=== PATIENT | female | born 1985 | race Caucasian/White ===

== ENCOUNTER 2017-02-03 09:42 | Inpatient (IN) | payer BC, MEDICAID ==
[2017-02-03 10:37] LABS: Hematocrit 37 % (35-47); Hemoglobin 12.5 g/dl (12.0-16.0); Mean Corpuscular HGB Conc 34 g/dl (31-36); Mean Corpuscular Hemoglobin 27 pg (27-31); Mean Corpuscular Volume 81 fL (80-97); Mean Platelet Volume 8 um3 (7.4-10.4); Red Cell Distribution Width 15 % (10.5-15); White Blood Count 16.4 10^3/ul (3.5-10.8)
[2017-02-03] MEDS ORDERED: Sodium Citrate/Citric Acid* 15 ML UDC ONE (13:12)
[2017-02-03] MEDS ORDERED: ceFOXitin 2 GM IVPREMIX* 2 GM/50 ML BAG ONE (13:12)
[2017-02-03] MEDS ORDERED: Morphine PF AMP (0.5MG/ML)* 5 MG/10 ML AMP ONE (13:36)
[2017-02-03] MEDS ORDERED: OXYTOCIN* 10 UNITS/ML 1 ML VIAL ONE (14:06)
[2017-02-03] MEDS ORDERED: Naloxone* 0.4 MG/ML 1 ML VIAL IV PRN (14:12)
[2017-02-03] MEDS ORDERED: Ondansetron INJ* 2 MG/ML VIAL IV PRN (14:12)
[2017-02-03] MEDS ORDERED: Nalbuphine* 20 MG/ML 1 ML VIAL IV PRN (14:12)
[2017-02-03] MEDS ORDERED: Dibucaine 1% 28.35 GM TUBE PR PRN (14:40)
[2017-02-03] MEDS ORDERED: Glycerin ADULT SUPP PR PRN (14:40)
[2017-02-03] MEDS ORDERED: Witch Hazel PAD* JAR TOPICAL PRN (14:40)
[2017-02-03] MEDS ORDERED: Acetaminophen TAB* 325 MG PO PRN (14:40)
[2017-02-03] MEDS ORDERED: RHO D Immune Globulin (HUMAN)* 300 MCG = 1,500 I.U. INJ IM ONE (14:40)
[2017-02-03] MEDS ORDERED: Zolpidem TAB* 5 MG PO PRN (14:40)
[2017-02-03] MEDS ORDERED: Oxytocin in LR* 20 UNITS/1,000 ML BAG IVPB SCH (15:00)
[2017-02-03] MEDS: Ibuprofen TAB* 400 MG PO SCH ×2 (15:38→21:47)
[2017-02-03] MEDS: oxyCODONE/Acetamin 5/325 MG* TAB PO PRN ×2 (15:38→20:36)
[2017-02-03] MEDS: Labetalol TAB* 100 MG PO SCH (20:36)
[2017-02-03] MEDS: Simethicone TAB* 80 MG TAB.CHEW PO SCH (20:36)
[2017-02-03] MEDS: Docusate CAP* 100 MG PO SCH (20:36)
[2017-02-04] MEDS: oxyCODONE/Acetamin 5/325 MG* TAB PO PRN ×6 (00:17→22:38)
[2017-02-04] MEDS: Ibuprofen TAB* 400 MG PO SCH (03:57)
[2017-02-04 06:41] LABS: Hematocrit 32 % (35-47); Hemoglobin 10.6 g/dl (12.0-16.0); Mean Corpuscular HGB Conc 33 g/dl (31-36); Mean Corpuscular Hemoglobin 27 pg (27-31); Mean Corpuscular Volume 81 fL (80-97); Mean Platelet Volume 7 um3 (7.4-10.4); Red Blood Count 3.94 10^6/ul (4.0-5.4); Red Cell Distribution Width 15 % (10.5-15); White Blood Count 16.3 10^3/ul (3.5-10.8)
--- NOTE | 2017-02-04 07:43 | OP ---
OPERATIVE REPORT: DATE OF OPERATION: 02/03/17 - Inpatient, [facility] [place] room 101-01. DATE OF : 89 SURGEON: Antonio Vasques MD TOBACCO STRIPPING MACHINE OPERATOR: Mehreen Abbasi CM ANESTHESIOLOGIST: Jonah Jordan DO ANESTHESIA: Spinal. PRE-OP DIAGNOSIS: Multiple variable decelerations, category 2 tracing, remote from delivery. POST-OP DIAGNOSES: Multiple variable decelerations, category 2 tracing, remote from delivery, plus nuchal cord x1 in the calcified placenta. OPERATIVE PROCEDURE: Low transverse section. INDICATIONS: This is a 31-year-old 1 para 0, proceeded to 8 cm and began to have multiple deep variable decels __oxygen___ left lateral recumbent position was attempted and change in position was tried without relief of these deep variables. Risks, benefits, alternatives, and indications were discussed with the patient. ESTIMATED BLOOD LOSS: 600 cc. COMPLICATIONS: None. FINDINGS: Include a viable female, Apgars 8 and 9, weight was 4 pounds and 13 ounces, and normal-appearing uterus and fallopian tubes. The right ovary contained a cyst approximately 4 to 5 cm in size without any excrescences with a smooth contour. DESCRIPTION OF PROCEDURE: The patient was taken to the operating room, prepped and draped in the usual fashion, in the left lateral recumbent position under spinal anesthesia. A Pfannenstiel incision was made in the abdomen and carried down through fat, fascia, and peritoneum. A transverse incision was made in the lower uterine segment and extended laterally using blunt dissection. The above was delivered through the incision with ease. The cord was doubly clamped and cut. The infant was handed to the awaiting casing man. Cord was obtained for pH and cord level was obtained. Placenta delivered spontaneously. The uterus was wiped out with a wet lap sponge. The uterine incision was then closed using 0 Polysorb in a running fashion. A second layer was used to imbricate the first layer. Good hemostasis was verified. The gutters were wiped out with a wet lap sponge. Good hemostasis was again verified. The peritoneum was then closed using 3-0 Polysorb in a running fashion. Good hemostasis achieved in the subrectus layers. The fascia was closed using 0 Polysorb in a running fashion. Good hemostasis achieved in the subcu. The space was closed using 3-0 Polysorb in a simple fashion and the skin was closed with 4-0 Monocryl in a subcuticular fashion. All sponge and instrument counts were correct and the patient returned to the recovery room in stable condition. [id number]/[facility] #: [id number] MTDD
[2017-02-04] MEDS: Docusate CAP* 100 MG PO SCH ×3 (08:36→20:51)
[2017-02-04] MEDS: Labetalol TAB* 100 MG PO SCH ×2 (08:37→20:51)
[2017-02-04] MEDS: Simethicone TAB* 80 MG TAB.CHEW PO SCH ×5 (08:37→20:51)
[2017-02-04] MEDS: Ferrous Gluconate TAB* 324 MG TAB PO SCH (09:29)
[2017-02-04] MEDS: Ibuprofen TAB* 600 MG PO PRN ×2 (10:32→21:35)
--- NOTE | 2017-02-04 18:58 | PTEDU ---
Patient Name: TYRON DIEZ TYRON DIEZ selected video: Follow Me Mum: The [facility] to Successful to view on 02/05/20 17 at 6:56:55 PM [id number]
--- NOTE | 2017-02-04 19:19 | PTEDU ---
Patient Name: TYRON DIEZ TYRON DIEZ selected video: BBOB: Nurturing Your Gorgeous \T\Growing Baby by to view on 02/04/2017 at 7:18:06 [id number]
[2017-02-05] MEDS: Ferrous Gluconate TAB* 324 MG TAB PO SCH (03:10)
[2017-02-05] MEDS: oxyCODONE/Acetamin 5/325 MG* TAB PO PRN ×4 (03:22→19:41)
[2017-02-05] MEDS: Ibuprofen TAB* 600 MG PO PRN ×3 (04:13→19:41)
[2017-02-05] MEDS: Labetalol TAB* 100 MG PO SCH ×2 (09:19→20:50)
[2017-02-05] MEDS: Docusate CAP* 100 MG PO SCH ×3 (09:19→20:50)
[2017-02-05] MEDS: Simethicone TAB* 80 MG TAB.CHEW PO SCH ×4 (09:19→20:50)
[2017-02-06] MEDS: oxyCODONE/Acetamin 5/325 MG* TAB PO PRN ×3 (00:19→08:57)
[2017-02-06] MEDS: Ibuprofen TAB* 600 MG PO PRN ×2 (04:16→11:25)
[2017-02-06 08:18] VITALS: BP 147/85
[2017-02-06] MEDS: Simethicone TAB* 80 MG TAB.CHEW PO SCH (08:57)
[2017-02-06] MEDS: Labetalol TAB* 100 MG PO SCH (08:57)
[2017-02-06] MEDS: Docusate CAP* 100 MG PO SCH (08:57)
[2017-02-06] MEDS ORDERED: Influenza VAC *QUAD* 2017-18* 0.5 ML SYRINGE IM ONE (11:07)
== END 2017-02-06 12:10 | disposition home or self-care (01) | DRG 540 ==
LOC: MCHOBOUT 09:42 → MCHOB 10:00
PROVIDERS: ADMIT Midwife; ATTEND Obstetrics & Gynecology
PROC: 10D00Z1 Extraction of Products of Conception, Low, Open Approach (ICD-10-PCS; 2017-02-03)
PROC: 4A1HX4Z Monitoring of Products of Conception, Cardiac Electrical Activity, External Approach (ICD-10-PCS; 2017-02-03)
PROC: 10907ZC Drainage of Amniotic Fluid, Therapeutic from Products of Conception, Via Natural or Artificial Opening (ICD-10-PCS; principal; 2017-02-03 13:32)
DX: O76 Abnormality in fetal heart rate and rhythm complicating labor and delivery (principal); O99.824 Streptococcus B carrier state complicating childbirth; O13.4 Gestational [pregnancy-induced] hypertension without significant proteinuria, complicating childbirth; O69.81X0 Labor and delivery complicated by cord around neck, without compression, not applicable or unspecified; Z88.8 Allergy status to other drugs, medicaments and biological substances; Z3A.38 38 weeks gestation of pregnancy; Z37.0 Single live birth
CPT/HCPCS: 36415; 85025; 85461; 86850; 86900; 86901; 90686; A9270-GY; J0694; J2300; J2540; J2590; J2790